=== PATIENT | male | born 1965 | race Caucasian/White ===

== ENCOUNTER 2021-09-06 14:07 | Emergency (ER) | payer OTHER ==
[2021-09-06 14:20] VITALS: BP 112/64; PULSE 78; TEMP 97.9; BMI 22.9
== END 2021-09-06 18:16 | disposition home or self-care (01) ==
LOC: JER 14:07
DX: S40.012A Contusion of left shoulder, initial encounter (principal); R07.81 Pleurodynia; W22.8XXA Striking against or struck by other objects, initial encounter; Y93.55 Activity, bike riding
CPT/HCPCS: 71046-TC-FY; 71101-TC-LT-FY; 73030-TC-LT-FY; 99285-25